=== PATIENT | male | born 1960 | race Caucasian/White ===

== ENCOUNTER 2017-03-07 16:48 | Emergency (ER) | payer MEDICAID, OTHER ==
[~2017-03-07] VITALS: Ht 180.3 cm; Wt 97.1 kg
--- NOTE | 2017-03-07 17:00 | NUR ---
PT TO ED DT " I FEEL LIKE IM HAVE VERTIGO" STARTED LAST NIGHT. PATIENT IS AAO4. APPEARS IN NO APPARENT DISTRESS. VSS
--- NOTE | 2017-03-07 17:14 | NUR ---
HEDY CALDERA AT BEDSIDE FOR EVAL.
[2017-03-07] MEDS ORDERED: MECLIZINE HCL 25 MG TABLET ONE (17:21)
[2017-03-07] MEDS ORDERED: MECLIZINE HCL 25 MG TABLET PO ONE (17:30)
--- NOTE | 2017-03-07 18:24 | NUR ---
Patient discharged to home in stable condition. Written and verbal after care instructions given. Patient verbalizes understanding of instruction.
[2017-03-07 18:26] VITALS: BP 132/80
== END 2017-03-07 18:36 | disposition home or self-care (01) ==
LOC: ER 16:49
DX: R42 Dizziness and giddiness (principal); F17.200 Nicotine dependence, unspecified, uncomplicated
CPT/HCPCS: 99282; A4606; J8597; Z7610

== ENCOUNTER 2017-08-22 01:35 | Emergency (ER) | payer MEDICAID, OTHER ==
[~2017-08-22] VITALS: Ht 177.8 cm; Wt 93.0 kg
[2017-08-22 01:56] VITALS: BP 139/89
== END 2017-08-22 02:12 | disposition home or self-care (01) ==
LOC: ER 01:37
DX: K08.89 Other specified disorders of teeth and supporting structures (principal); K02.9 Dental caries, unspecified; F17.200 Nicotine dependence, unspecified, uncomplicated; Z98.890 Other specified postprocedural states
CPT/HCPCS: A4606; Z7610

== ENCOUNTER 2017-11-11 22:19 | Emergency (ER) | payer MEDICAID, OTHER ==
[2017-11-11] MEDS ORDERED: TRAMADOL HCL 50 MG TABLET ONE (22:41)
[2017-11-11] MEDS ORDERED: TRAMADOL HCL 50 MG TABLET PO ONE (23:00)
== END 2017-11-12 00:01 | disposition home or self-care (01) ==
LOC: ER 22:21
DX: S93.504A Unspecified sprain of right lesser toe(s), initial encounter (principal); I10 Essential (primary) hypertension; E11.9 Type 2 diabetes mellitus without complications; F17.200 Nicotine dependence, unspecified, uncomplicated; Z98.890 Other specified postprocedural states; W22.8XXA Striking against or struck by other objects, initial encounter; Y93.89 Activity, other specified; Y92.89 Other specified places as the place of occurrence of the external cause; Y99.8 Other external cause status
CPT/HCPCS: 73660-TC; A4606; Z7610

== ENCOUNTER 2020-03-01 11:10 | Emergency (ER) | payer MEDICAID, MEDICARE, OTHER ==
[~2020-03-01] VITALS: Ht 172.7 cm; Wt 91.2 kg
--- NOTE | 2020-03-01 11:23 | NUR ---
DR CRUZ AT BEDSIDE FOR EVAL
[2020-03-01] MEDS ORDERED: ZIPRASIDONE MESYLATE 20 MG/VIAL VIAL IM ONE ×2 (11:35→12:00)
--- NOTE | 2020-03-01 11:47 | NUR ---
PT IS AGITATED, YELLING, UNCOOPERATIVE TO STAFF. ERMD AWARE. MEDICATED ORDERED. SEE EMAR.
[2020-03-01 11:56] LABS: BASOPHILS % (AUTO) 0.4 % (0.0-2.0); EOSINOPHILS % (AUTO) 0.6 % (0.0-6.0); HEMATOCRIT 43 % (39-51); HEMOGLOBIN 14.1 g/dL (13.5-17.5); LYMPHOCYTES % (AUTO) 32.5 % (20.0-44.0); MEAN CORPUSCULAR HGB CONC 33 g/dl (31.0-36.0); MEAN CORPUSCULAR VOLUME 96 fL (80-96); MONOCYTES # (AUTO) 0.8 /CMM (0.1-1.30); MONOCYTES % (AUTO) 6.2 % (2.0-12.0); NEUTROPHILS # (AUTO) 7.4 /CMM (1.8-8.9); NEUTROPHILS % (AUTO) 60.3 % (43.0-81.0); PLATELET COUNT (AUTO) 342 /CMM (150-450); RED BLOOD CELL COUNT(AUTO) 4.46 MIL/uL (4.5-6.0); WHITE BLOOD COUNT (AUTO) 12.2 K/uL (4.3-11.0)
[2020-03-01 11:58] LABS: APPEARANCE,URINE Clear (CLEAR); BILIRUBIN,URINE Negative (NEGATIVE); BLOOD, URINE Moderate Ery/uL (NEGATIVE); COLOR,URINE Yellow (YELLOW); KETONES,URINE 40 (NEGATIVE); LEUKOCYTE ESTERASE ,URINE Negative (NEGATIVE); NITRITE, URINE Negative (NEGATIVE); PH,URINE 5.5 (5.0-8.0); PROTEIN,URINE 100 mg/dl (NEGATIVE); UGLUCOSE 100 MG/DL mg/dL (NEGATIVE); UROBILINOGEN,URINE 0.2 EU/dL (0.2)
[2020-03-01 12:23] LABS: ALBUMIN 4.2 g/dL (3.4-5.0); BILIRUBIN,DIRECT 0.1 mg/dL (0.0-0.2); BILIRUBIN,TOTAL 0.7 mg/dL (0.2-1.0); CALCIUM, SERUM 8.6 mg/dL (8.5-10.1); CREATININE 1.2 mg/dL (0.6-1.3); POTASSIUM 3.5 mmol/L (3.5-5.1); TOTAL PROTEIN, SERUM 8.6 g/dL (6.4-8.2)
[2020-03-01 12:29] LABS: SALICYLATE 1.2 mg/dL (2.8-20.0)
[2020-03-01 13:20] LABS: BACTERIA,URINE None seen /HPF (None Seen); SQUAMOUS EPITHELIAL CELL,UR Few /HPF (None Seen)
[2020-03-01 13:21] LABS: WBC,URINE NONE SEEN /HPF (0-3)
[2020-03-01] MEDS ORDERED: IV NS 0.9% 1,000 ML IV ONE ×2 (14:30→15:00)
--- NOTE | 2020-03-01 14:52 | NUR ---
PATIENT RESTING, NO DISTRESS NOTED, NEEDS ATTENDED, KEPT COMFORTABLE. IV LINE ESTABLISHED.
--- NOTE | 2020-03-01 16:02 | NUR ---
Industrial Ecologist met with the patient at bedside. Patient is alert and oriented x4. Patient appears relaxed and social worker aide provided patient with another mask as patient's mask was ripped. 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 Per patient, as stressful as it is, he tries to make life positive. Patient reports that during the COVID pandemic he has felt like he needs to be more positive to make everyone in his home feel better. Patient informed this SW that this situation was because of the stress and alcohol he has been drinking. Patient provided verbal consent to speak with Salty as patient would like to return to his home. Plan: SW to folow up with Salty .
--- NOTE | 2020-03-01 16:06 | NUR ---
Electrogalvanizing Machine Operator spoke to patient's Salty and patient's daughter Bharathi . Per Arvin, this behavioral incident has happened before. Bharathi and Salty know how to calm the patient down and have assistance from their neighbors to help the patient return to baseline. Arvin believe the patient should be referred to psychiatrist to ensure that the patient receives help. Per Arvin, they will welcome the patient in their home after discharge. Plan: SW to provide psychiatric referrals to the patient and provide an update to SAMPLE SHOE INSPECTOR AND REWORKERJOSE Pena.
--- NOTE | 2020-03-01 16:15 | NUR ---
Patient's family contact: Salty and patient's daughter Eman .
--- NOTE | 2020-03-01 16:15 | NUR ---
MAYRA informed DIRECTOR AMBULATORYJOSE Pena that patient's family is willing to have patient return home. DIRECTOR AMBULATORYJOSE Pena understood and will call family prior to discharge.
--- NOTE | 2020-03-01 16:20 | NUR ---
SW left patient resources in chart including: Mental Health resources provided: [facility] [address] [place], [place] [id number] ; [facility] [address], [place] [address] ; [facility] [address] [place], [place] [phone] ; [facility] [address] [place] [address] Substance Abuse resources provided included: [facility] Substance Abuse Self-Helpline ([facility]) ; [facility] [address] [facility] [place] [id number] ; [facility] [address] [facility] [phone] ; [facility] [address] [facility] [facility] [address] ; [facility] [address] [facility] [facility] [phone] ; [facility] [address] [facility] [address] ; [facility] [address] [facility] [phone] ; [facility] Substance Abuse Helpline([facility] ; [facility] ; [facility]; [facility]; [facility] [place]; [facility] [place]; [facility] [place]; [facility] [place]; [facility] [place]; Alcoholics Anonymous [facility]; [place] ; Marijuana Anonymous [facility]; Narcotics Anonymous www.na.org.
--- NOTE | 2020-03-01 16:30 | NUR ---
PATIENT A/OX4, BREATHING EVEN AND UNLABORED, CALM AND COOPERATIVE. PATIENT WAS SEEN AND EVALUATED BY SARAH AND PATIENT DENIES SI/HI. PER LAMBERTO SHE TALKED TO THE FAMILY.
--- NOTE | 2020-03-01 17:00 | NUR ---
PATIENT A/OX4, AMBULATORY WITH STEADY GAIT, FOOD PROVIDED.
--- NOTE | 2020-03-01 17:05 | NUR ---
PATIENT REASSESSED BY DR. SMITH AND STATED PATIENT IS CLEARED TO BE DISCHARGED. PATIENT IS A/OX4, AMBULATORY WITH STEADY GAIT.
--- NOTE | 2020-03-01 17:21 | NUR ---
IV removed. Catheter intact and site benign. Pressure and 4x4 applied to site. No bleeding noted.Patient discharged to home in stable condition. Written and verbal after care instructions given. Patient verbalizes understanding of instruction.
[2020-03-01 17:22] VITALS: BP 153/80
== END 2020-03-01 17:22 | disposition home or self-care (01) ==
LOC: ER 11:27
DX: R45.851 Suicidal ideations (principal); R45.1 Restlessness and agitation; E11.9 Type 2 diabetes mellitus without complications; R00.0 Tachycardia, unspecified
CPT/HCPCS: 36415; 80048; 80076; 80299; 80307 ×2; 80320; 81001; 85025; 93005; 96360; 96372; 99285; J3486; J7030; 81000-TC; G0480

== ENCOUNTER 2021-11-09 20:59 | Emergency (ER) | payer MEDICAID ==
[~2021-11-09] VITALS: Ht 180.3 cm; Wt 90.7 kg
[2021-11-09 21:11] VITALS: BP 137/87
--- NOTE | 2021-11-09 22:00 | NUR ---
TAKEN TO CT
== END 2021-11-09 22:43 | disposition home or self-care (01) ==
LOC: ER 21:05
DX: S00.83XA Contusion of other part of head, initial encounter (principal); F17.200 Nicotine dependence, unspecified, uncomplicated; Z86.69 Personal history of other diseases of the nervous system and sense organs; W18.09XA Striking against other object with subsequent fall, initial encounter; Y93.89 Activity, other specified; Y92.89 Other specified places as the place of occurrence of the external cause; Y99.8 Other external cause status
CPT/HCPCS: 70450-TC

== ENCOUNTER 2022-07-30 01:06 | Emergency (ER) | payer MEDICAID ==
[~2022-07-30] VITALS: Ht 177.8 cm; Wt 92.1 kg
[2022-07-30] MEDS ORDERED: KETOROLAC TROMETHAMINE INJ 30 MG/ML VIAL IV ONE (01:30)
--- NOTE | 2022-07-30 01:30 | NUR ---
XRAY DONE AT BEDSIDE.
--- NOTE | 2022-07-30 01:32 | NUR ---
BIBS TO ER BED 2. AAOX4. NOT IN RESP DISTRESS. AMBUALTORY. CAME IN FOR L SIDE CP X 1 WEEK WORST TODAY. AGGREVATED BY MOVING AND DEEP BREATHING. NON RADIAITING. INTERMITENT. PT DENIES ANY TRAUMA TO CHEST. PT HAVE NOT TAKEN ANY MEDS FOR THE PAIN SINCE IT STARTED. MD IS AT BEDSIDE. ORDERS RECEIVED.
[2022-07-30] MEDS ORDERED: KETOROLAC TROMETHAMINE INJ 30 MG/ML VIAL ONE (01:44)
--- NOTE | 2022-07-30 01:50 | NUR ---
NEVAEH HINTON ON RIGHT AC G18. BLOOD DRAWN AND SENT TO LAB
[2022-07-30 02:00] LABS: BASOPHILS % (AUTO) 0.2 % (0.0-2.0); EOSINOPHILS % (AUTO) 2.1 % (0.0-6.0); HEMATOCRIT 39 % (39-51); HEMOGLOBIN 13.1 g/dL (13.5-17.5); LYMPHOCYTES # (AUTO) 2.2 K/uL (0.8-4.8); LYMPHOCYTES % (AUTO) 24.8 % (20.0-44.0); MEAN CORPUSCULAR HGB CONC 34 g/dl (31.0-36.0); MEAN CORPUSCULAR VOLUME 91 fL (80-96); MONOCYTES # (AUTO) 0.7 K/uL (0.1-1.30); MONOCYTES % (AUTO) 8.2 % (2.0-12.0); NEUTROPHILS # (AUTO) 5.7 K/uL (1.8-8.9); NEUTROPHILS % (AUTO) 64.7 % (43.0-81.0); PLATELET COUNT (AUTO) 275 K/uL (150-450); RED BLOOD CELL COUNT(AUTO) 4.27 MIL/uL (4.5-6.0); WHITE BLOOD COUNT (AUTO) 8.8 K/uL (4.3-11.0)
[2022-07-30 02:28] LABS: ALANINE AMINOTRANSFERASE 26 U/L (12-78); ALBUMIN 3.9 g/dL (3.4-5.0); ALKALINE PHOSPHATASE 65 U/L (46-116); ASPARTATE AMINOTRANSFERASE 18 U/L (15-37); BILIRUBIN,DIRECT 0.1 mg/dL (0.0-0.2); BILIRUBIN,TOTAL 0.6 mg/dL (0.2-1.0); CALCIUM, SERUM 9.3 mg/dL (8.5-10.1); CARBON DIOXIDE 30 mmol/L (21-32); CHLORIDE 102 mmol/L (98-107); CREATININE 0.9 mg/dL (0.6-1.3); GLUCOSE 106 mg/dL (74-106); POTASSIUM 3.7 mmol/L (3.5-5.1); TOTAL PROTEIN, SERUM 7.5 g/dL (6.4-8.2); UREA NITROGEN, BLOOD 14 mg/dL (7-18)
[2022-07-30 02:30] LABS: SODIUM SERUM 135 mmol/L (136-145)
--- NOTE | 2022-07-30 04:51 | NUR ---
IV MARY JANE REMOVED
--- NOTE | 2022-07-30 04:51 | NUR ---
Patient discharged to home in stable condition. Written and verbal after care instructions given. Patient verbalizes understanding of instruction.
[2022-07-30 04:52] VITALS: BP 109/69
== END 2022-07-30 04:53 | disposition home or self-care (01) ==
LOC: ER 01:07
DX: R07.89 Other chest pain (principal); E78.5 Hyperlipidemia, unspecified; E11.9 Type 2 diabetes mellitus without complications; F17.200 Nicotine dependence, unspecified, uncomplicated
CPT/HCPCS: 99285; 96374; 71045; 93005; 85025; 80048; 80076; 36415; 84484 ×2; 85730; J1885

== ENCOUNTER 2022-12-24 11:59 | Emergency (ER) | payer MEDICAID ==
[~2022-12-24] VITALS: Ht 180.3 cm; Wt 90.7 kg
[2022-12-24 12:00] VITALS: BP 143/85; TEMP 98.2; O2SAT 99
[2022-12-24] MEDS ORDERED: KETOROLAC TROMETHAMINE INJ 60 MG/2 ML VIAL IM ONE (12:30)
[2022-12-24] MEDS ORDERED: KETOROLAC TROMETHAMINE INJ 30 MG/ML VIAL ONE (13:09)
== END 2022-12-24 13:57 | disposition home or self-care (01) ==
LOC: ER 12:04
DX: K08.89 Other specified disorders of teeth and supporting structures (principal); I10 Essential (primary) hypertension; E78.5 Hyperlipidemia, unspecified; E11.9 Type 2 diabetes mellitus without complications
CPT/HCPCS: 99283; 96372; J1885